=== PATIENT | male | born 1950 | race Hispanic/Latino ===

== ENCOUNTER 2017-12-01 11:05 | Observation (INO) | payer OTHER ==
[2017-11-30 14:03] LABS: BASOPHILS % 0.4 % (0.0-1.0); EOSINOPHILS # (AUTO) 0.4 (0.0-0.4); EOSINOPHILS % 5.5 % (0.0-6.0); HEMATOCRIT 44.5 % (38.2-49.6); HEMOGLOBIN 15.4 g/dL (14.0-18.0); LYMPHOCYTES # (AUTO) 1.5 (1.0-3.2); LYMPHOCYTES % 21.3 % (18.0-39.1); MEAN CORPUSCULAR HEMOGLOBIN 32.5 pg (28-32); MEAN CORPUSCULAR HGB CONC 34.6 g/dL (31-35); MEAN CORPUSCULAR VOLUME 93.9 fL (81-99); MONOCYTES # (AUTO) 0.5 (0.2-0.8); MONOCYTES % 7.1 % (4.4-11.3); NEUTROPHILS # (AUTO) 4.7 (2.1-6.9); NEUTROPHILS % 65.7 % (38.7-80.0); PLATELET COUNT 176 x10e3/uL (140-360); RED BLOOD COUNT 4.74 x10e6/uL (4.3-5.7); RED CELL DISTRIBUTION WIDTH 12.8 % (11.7-14.4)
[2017-11-30 14:16] LABS: INR 1.07; PROTHROMBIN TIME 14.9 seconds (11.9-14.5)
[2017-11-30 14:22] LABS: ANION GAP 16.1 mmol/L (8-16); BLOOD UREA NITROGEN 21 mg/dL (7-26); BUN/CREATININE RATIO 18 (6-25); CALCIUM 9.9 mg/dL (8.4-10.2); CARBON DIOXIDE 23 mmol/L (22-29); CHLORIDE 105 mmol/L (98-107); CREATININE, SERUM 1.18 mg/dL (0.72-1.25); EST GLOMERULAR FILTRATION RATE > 60 ML/MIN (60-); GLUCOSE 97 mg/dL (74-118); POTASSIUM 4.1 mmol/L (3.5-5.1); SODIUM 140 mmol/L (136-145)
[2017-12-01] VITALS (8 sets, daily range): BP systolic 136–159; BP diastolic 64–95
[~2017-12-01] VITALS: Ht 165.1 cm; Wt 87.1 kg
[~2017-12-01 11:05] MED LIST: CETIRIZINE HCL10 M1 PO; FENOFIBRATE145 MG PO; TAMSULOSIN HCL0.4 MG PO; XARELTO20 MG PO
[2017-12-01] MEDS ORDERED: LIDOCAINE HCL 2% LOCAL 20 ML VIAL ONE ×2 (14:06→15:02)
[2017-12-01] MEDS ORDERED: SODIUM CHLORIDE 0.9% 500ML 500 ML ONE (14:06)
[2017-12-01] MEDS ORDERED: BACITRACIN 50,000 UNIT VIAL ONE ×2 (14:07→14:23)
[2017-12-01] MEDS ORDERED: SODIUM CHLORIDE 0.9% 1000ML 2,000 ML ONE (14:07)
[2017-12-01] MEDS ORDERED: SODIUM CHLORIDE 0.9% 1000ML 1,000 ML ONE (14:24)
[2017-12-01] MEDS ORDERED: MIDAZOLAM HCL 2 MG/2 ML VIAL ONE ×2 (14:36→15:05)
[2017-12-01] MEDS ORDERED: VANCOMYCIN 1GM/NS 250 ML 250 ML ONE (14:36)
[2017-12-01] MEDS ORDERED: FENTANYL CITRATE/PF 100MCG/2 ML INJ ONE (14:36)
--- NOTE | 2017-12-01 17:01 | Diagnostic Imaging Report ---
A single frontal view of the chest. HISTORY: Status post pacemaker placement COMPARISON: None available. DISCUSSION: Portable technique, limits sensitivity of the exam. Soft tissue attenuation partially limits sensitivity of the exam. Overlying monitoring leads and additional artifacts further limits evaluation. Tubes/Lines: An implanted left-sided cardiac device with 2 leads. Lungs and pleura: Low lung volumes result in bibasilar vascular crowding, accentuation of the pulmonary interstitial markings, central pulmonary vasculature, and the cardiac silhouette. Allowing for these limitations, the findings are as follows: Diffusely increased interstitial markings. No definite pleural effusion or pneumothorax is identified. Heart and mediastinum: The cardiac silhouette and central pulmonary vasculature appear prominent. Bones: No acute osseous lesion is identified, given this limited exam. IMPRESSION: 1. Status post placement of a left-sided implanted pacemaker. 2. Probable central pulmonary vascular congestion and mild pulmonary edema; however, these findings could be accentuated by the described limitations. Signed by: Dr. Hi Vaughn D.O., M.M.M. on 12/01/2017 4:57 PM
--- NOTE | 2017-12-01 22:07 | Operative Report ---
DATE OF PROCEDURE: December 01, 2017 PREOPERATIVE DIAGNOSES 1. Congestive heart failure with preserved ejection fraction. 2. Symptomatic bradycardia with dizziness. 3. Chronic persistent atrial fibrillation. 4. Anticipated ventricular pacing more than 40%. POSTOPERATIVE DIAGNOSES 1. Congestive heart failure with preserved ejection fraction. 2. Symptomatic bradycardia with dizziness. 3. Chronic persistent atrial fibrillation. 4. Anticipated ventricular pacing more than 40%. ESTIMATED BLOOD LOSS: 5 mL. COMPLICATIONS: None. PROCEDURES PERFORMED 1. Biventricular pacemaker placement. 2. Moderate sedation. ANESTHESIA: Moderate conscious sedation was provided under my direct supervision by sedation-trained nurse. Sedation approximate time 45 minutes with Versed and fentanyl. There were no complications. See sedation form for details. DESCRIPTION OF PROCEDURE: After informed consent was obtained, the patient was brought to the electrophysiology laboratory in a fasting, nonsedated state. The area over his chest was prepped and draped in the usual sterile fashion. Moderate sedation and prophylactic antibiotic were given. One percent lidocaine was used as local anesthetic and a 3-cm skin incision was made in the left subclavicular area. Electrocautery, sharp and blunt dissection were used to reach the muscular fascia, and a pocket was created for eventual implantation of the device. Vascular access was obtained times 2 in the left axillary vein using the modified Seldinger technique under fluoroscopic guidance. 6-Bur[place]ian and 9.5-[place] sheaths were placed. The ventricular lead was advanced to the RV apex. R wave 7.9, pacing 0.4 at 0.4, impedance 870. The coronary sinus was cannulated with AL2 catheter and Wholey wire. Coronary sinus angiogram demonstrated a good posterolateral branch and successfully cannulated. Pacing threshold there was 1.5 at 0.5, impedance 870. Sheaths were removed from the body. Leads were secured to the fascia using #0 silk. The pocket was irrigated with antibiotic solution using a pulse cold press loader. Hemostasis was meticulous. Leads were connected to the device and the entire pacemaker system placed in the pocket. Of note, a port plug was connected to drug port. The incision was closed using Vicryl and Dermabond. The patient tolerated the procedure well. The procedure was deemed complete. SUMMARY OF HARDWARE IMPLANTED 1. The new pacemaker is [employer], model #[id number], [id number]. 2. Right ventricular lead is [employer] [id number], [id number]. 3. The left ventricular lead is [employer] [id number], [id number]. IMPRESSION: Successful biventricular pacemaker placement via left axillary vein. No atrial lead was placed due to chronic atrial fibrillation. PLAN 1. Routine postop monitoring on telemetry bed. 2. Chest x-ray. 3. Follow up in 2 weeks. Job#: [id number] [facility]
[2017-12-02] VITALS: BP 154/88
[2017-12-02 04:00] VITALS: BP 136/88
[2017-12-02 08:39] VITALS: BP 152/91
[2017-12-02] MEDS ORDERED: MINOCYCLINE HCL50 MG PO (09:14)
[2017-12-02] MEDS ORDERED: ULTRAM50 MG PO (09:15)
== END 2017-12-02 09:38 | disposition home or self-care (01) ==
LOC: CATH LAB 11:05 → PACU V 16:53 → MED/SURG2 17:04
PROVIDERS: ADMIT Internal Medicine; ATTEND Internal Medicine
DX: I48.1 Persistent atrial fibrillation (principal); R00.1 Bradycardia, unspecified; R42 Dizziness and giddiness; I50.9 Heart failure, unspecified; I48.2 Chronic atrial fibrillation; Z79.01 Long term (current) use of anticoagulants; I48.92 Unspecified atrial flutter
CPT/HCPCS: 33207; 33225; 36415; 71045; 80048; 85025; 85610; C1769; C1898; C1900; C2621; G0378 ×2; J2001; J2250; J3370; J7030; J7040; C1882